=== PATIENT | male | born 1950 | race Caucasian/White ===

== ENCOUNTER 2017-09-24 20:07 | Inpatient (IN) | payer MEDICARE ==
[2017-09-24] MEDS ORDERED: PIPERACILLIN-TAZOBACTAM 3.375 GM in DEXTROSE/WATER 1 50ML.BAG IVPB STA (20:41)
--- NOTE | 2017-09-24 20:54 | ED ---
Extremity Problem HPI - General Chief complaint: Extremity Problem,Nontraumatic Stated complaint: Dog bite Time Seen by Provider: 09/24/17 20:24 Source: patient Mode of arrival: ambulatory Limitations: no limitations - History of Present Illness Initial comments: Patient is a 67-year-old male who presents with a chief complaint of left hand pain and swelling after accidental dog bite 2 days ago. The patient states that he was bit by his dog. Over the last 2 days, the patient has been having increased pain and swelling. He was seen at [facility] today who sent him to the emergency department for further evaluation. Patient states that he does not note any draining however it is swollen and painful to touch. Patient is unable to make a fist currently secondary to pain. Patient has not taken any medications for pain yet. - Related Data Home Medications Medication Instructions Recorded Confirmed Sertraline [Zoloft] 100 tab PO DAILY 11/21/13 09/24/17 Zolpidem [Ambien] 10 mg PO HS PRN 11/21/13 09/24/17 Ranitidine HCl [Zantac] 150 mg PO BID 07/06/16 09/24/17 risperiDONE [RisperDAL] 0.5 mg PO HS 09/24/17 09/24/17 Allergies Allergy/AdvReac Type Severity Reaction Status Date / Time No Known Allergies Allergy Verified 09/24/17 21:00 Review of Systems ROS Statement: Those systems with pertinent positive or pertinent negative responses have been documented in the HPI. ROS Other: All systems not noted in ROS Statement are negative. Past Medical History Past Medical History: GERD/Reflux, Osteoarthritis (OA) Additional Past Medical History / Comment(s): hernia not repaired History of Any Multi-Drug Resistant Organisms: None Reported Past Surgical History: Cholecystectomy, Joint Replacement Additional Past Surgical History / Comment(s): RT KNEE REPLACEMENT, NECK SURG X 2. COLONOSCOPY Past Anesthesia/Blood Transfusion Reactions: No Reported Reaction Past Psychological History: Depression Smoking Status: Former smoker Past Alcohol Use History: None Reported Past Drug Use History: None Reported - Past Family History Sister(s) Family Medical History: Cancer Additional Family Medical History / Comment(s): 2 SISTERS HAD CANCER General Exam Limitations: no limitations General appearance: alert, in no apparent distress Head exam: Present: atraumatic, normocephalic Respiratory exam: Present: normal lung sounds bilaterally. Absent: respiratory distress, wheezes Cardiovascular Exam: Present: regular rate, normal rhythm GI/Abdominal exam: Present: soft. Absent: distended, tenderness Rectal exam: Present: deferred Extremities exam: Present: tenderness, joint swelling, other (Patient has a linear superficial laceration between his thumb and index finger from the dog bite. There is surrounding warmth, swelling, and erythema. There is no streaking or pain in the flexors or extensor tendon sheaths. Patient does have moderate to severe swelling over the volar aspect of the second MCP joint. The area is fluctuant) Back exam: Present: normal inspection Neurological exam: Present: alert, oriented X3 Psychiatric exam: Present: normal affect, normal mood Skin exam: Present: warm, dry, intact Course Vital Signs 09/24/17 20:17 Temperature 98.9 F Pulse Rate 98 Respiratory 18 Rate Blood Pressure 143/71 Medical Decision Making - Medical Decision Making Patient presents with a chief complaint of hand pain secondary to a dog bite. On initial evaluation, vital signs are stable, patient is no acute distress. Examination of the hand is concerning for soft tissue infection. Basic blood work was sent along with an ESR, CRP, and x-ray of the hand. This case was discussed with Dr. Lynch who is requesting an MRI of the patient's hand with consult to Dr. Moise from infectious disease. Patient was started on Zosyn. I discussed the care plan with the patient, he is agreeable currently. Plan 20 1 PM Lab evaluation of this patient shows a leukocytosis and elevated C-reactive protein. Lungs are otherwise unremarkable thus far. This time, patient is stable for transfer to the floor. - Lab Data Result diagrams: 09/24/17 20:47 09/24/17 20:47 Lab Results 09/24/17 09/24/17 Range/Units 20:47 20:47 WBC 13.4 H (3.8-10.6) k/uL RBC 5.08 (4.30-5.90) m/uL Hgb 15.5 (13.0-17.5) gm/dL Hct 43.8 (39.0-53.0) % MCV 86.3 (80.0-100.0) fL MCH 30.6 (25.0-35.0) pg MCHC 35.4 (31.0-37.0) g/dL RDW 12.9 (11.5-15.5) % Plt Count 207 (150-450) k/uL Neutrophils % 82 % Lymphocytes % 12 % Monocytes % 4 % Eosinophils % 1 % Basophils % 0 % Neutrophils # 11.0 H (1.3-7.7) k/uL Lymphocytes # 1.7 (1.0-4.8) k/uL Monocytes # 0.5 (0-1.0) k/uL Eosinophils # 0.2 (0-0.7) k/uL Basophils # 0.1 (0-0.2) k/uL Sodium 139 (137-145) mmol/L Potassium 4.1 (3.5-5.1) mmol/L Chloride 102 (98-107) mmol/L Carbon Dioxide 22 (22-30) mmol/L Anion Gap 15 mmol/L BUN 16 (9-20) mg/dL Creatinine 0.90 (0.66-1.25) mg/dL Est GFR (CKD-EPI)AfAm >90 (>60 ml/min/1.73 sqM) Est GFR (CKD-EPI)NonAf 87 (>60 ml/min/1.73 sqM) Glucose 269 H (74-99) mg/dL Calcium 10.1 (8.4-10.2) mg/dL C-Reactive Protein 26.4 H (<10.0) mg/L Disposition Clinical Impression: Cellulitis of left hand, Dog bite Disposition: ADMITTED IP TO THIS HOSP Condition: Good Decision to Admit Reason: Admit from EC - Out of Hospital Transfer - Req. Specs Out of Hospital Transfer - Requested Specifics: Other Non-Acute
[2017-09-24] MEDS ORDERED: ACETAMINOPHEN TAB 325 MG TAB PO PRN (20:55)
[2017-09-24] MEDS ORDERED: oxyCODONE-APAP 5-325MG 1 EACH TAB PO PRN (20:55)
[2017-09-24] MEDS ORDERED: NALOXONE 0.4 MG/ML 1 ML VIAL IV PRN (20:55)
[2017-09-24] MEDS ORDERED: IBUPROFEN 400 MG TAB PO PRN (20:55)
[2017-09-24 21:07] LABS: Basophils # (A) 0.1 k/uL (0-0.2); Basophils % (A) 0 %; Eosinophils # (A) 0.2 k/uL (0-0.7); Eosinophils % (A) 1 %; HCT 43.8 % (39.0-53.0); HGB 15.5 gm/dL (13.0-17.5); Lymphocytes # (A) 1.7 k/uL (1.0-4.8); Lymphocytes % (A) 12 %; MCH 30.6 pg (25.0-35.0); MCHC 35.4 g/dL (31.0-37.0); MCV 86.3 fL (80.0-100.0); Mean Platelet Volume 7.8; Monocytes # (A) 0.5 k/uL (0-1.0); Monocytes % (A) 4 %; Neutrophils % (A) 82 %; Platelet Count 207 k/uL (150-450); RBC 5.08 m/uL (4.30-5.90); RDW 12.9 % (11.5-15.5); WBC 13.4 k/uL (3.8-10.6)
--- NOTE | 2017-09-24 21:07 | XR ---
EXAMINATION TYPE: XR hand complete LT DATE OF EXAM: 09/24/2017 COMPARISON: NONE HISTORY: Dog bite. Pain. TECHNIQUE: 3 views FINDINGS: There is amputation deformity of the tuft of the distal phalanx of the thumb. This appears old. There is mild spurring at the DIP joints. I see no fracture nor dislocation. 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 No fracture seen.
[2017-09-24 21:16] LABS: Anion Gap 15 mmol/L; Blood Urea Nitrogen 16 mg/dL (9-20); C Reactive Protein 26.4 mg/L (<10.0); Calcium 10.1 mg/dL (8.4-10.2); Carbon Dioxide 22 mmol/L (22-30); Chloride 102 mmol/L (98-107); Glucose 269 mg/dL (74-99); Potassium 4.1 mmol/L (3.5-5.1); Sodium 139 mmol/L (137-145)
[2017-09-24 21:49] LABS: Erythrocyte Sedimentation Rate 7 mm/hr (0-15)
[2017-09-24] MEDS: ZOLPIDEM 10 MG TAB PO SCH (23:16)
[2017-09-25 07:18] LABS: Glucose,Whole Blood 191 mg/dL (75-99)
[2017-09-25] MEDS: INSULIN ASPART 100 UNIT/ML 1 ML 10 ML VIAL SQ SCH ×4 (07:29→22:57)
[2017-09-25] MEDS: SERTRALINE 100 MG TAB PO SCH (07:29)
[2017-09-25] MEDS ORDERED: ZOLPIDEM 10 MG TAB PO PRN (11:07)
[2017-09-25] MEDS: PIPERACILLIN-TAZOBACTAM 3.375 GM in DEXTROSE/WATER 1 50ML.BAG IVPB SCH ×2 (11:34→22:57)
[2017-09-25] MEDS ORDERED: PIPERACILLIN-TAZOBACTAM 3.375 GM in DEXTROSE/WATER 1 50ML.BAG IVPB SCH (12:00)
[2017-09-25 12:33] LABS: Glucose,Whole Blood 190 mg/dL (75-99)
[2017-09-25 17:43] LABS: Glucose,Whole Blood 202 mg/dL (75-99)
[2017-09-25 18:55] LABS: Hemoglobin A1C 7.9 % (4.0-6.0)
[2017-09-25] MEDS ORDERED: ZOLPIDEM 10 MG TAB PO SCH (21:00)
[2017-09-25] MEDS: ZOLPIDEM 10 MG TAB PO SCH (21:16)
[2017-09-25] MEDS: risperiDONE 0.5 MG TAB PO SCH (21:16)
[2017-09-25] MEDS: FAMOTIDINE 20 MG TAB PO SCH (21:16)
[2017-09-25] MEDS: metFORMIN 500 MG TAB PO SCH (21:16)
[2017-09-25 21:32] LABS: Glucose,Whole Blood 181 mg/dL (75-99)
--- NOTE | 2017-09-25 21:43 | P.HPIM ---
History of Present Illness H&P Date: 09/25/17 Chief Complaint: Dog bite with right hand swelling and redness and pain This is a pleasant 67-year-old gentleman patient of Dr. Lawler. He has underlying history of posterior arthritis diabetes mellitus and posttraumatic stress disorder obstructive sleep apnea admitted emergency room 2 days after his been bitten by a dog. They have a domesticated 13 yo [employer], when the patient was bitten after he tried handling the dog to feed him, patient has between him and the left hand involving the metacarpal joint, this was 2 days prior to admission. Patient thereafter dress this one, and woke up this morning with significant redness and swelling and induration. He was subsequently admitted in the emergency room with leukocytosis, and swelling of the hand both dorsum and plantar aspect, patient was started on Zosyn with consultations to Dr. Moise and an MRI of the head imaging was requested. Tetanus vaccination also was requested to be completed in the emergency room. Barton of swelling and redness pain difficulty in using the hand mainly at the metacarpal joint level, wrists are spared distal digit tips are spared Review of Systems Constitutional: Reports as per HPI, Denies anorexia, Denies chills, Denies chronic headaches, Denies chronic pain, Denies daytime sleepiness, Denies fatigue, Denies fever, Denies lethargy, Denies malaise, Denies night sweats, Denies poor appetite, Denies sweats, Denies weakness, Denies weight gain, Denies weight loss Ears, nose, mouth and throat: Reports as per HPI, Denies ant. neck pain, Denies bleeding gums, Denies dental pain, Denies dysphagia, Denies epistaxis, Denies headache, Denies hoarseness, Denies mouth pain, Denies nasal congestion, Denies nasal discharge, Denies neck fullness/pressure, Denies neck lump, Denies nose pain, Denies odynophagia, Denies post-nasal drip, Denies sinus pain, Denies sinus pressure, Denies swelling in mouth, Denies swelling in throat, Denies sore throat, Denies vertigo, Denies voice changes Cardiovascular: Reports as per HPI, Denies chest pain, Denies claudication, Denies decreased exercise tolerance, Denies dyspnea on exertion, Denies edema, Denies high blood pressure, Denies irregular heart beat, Denies leg edema, Denies lightheadedness, Denies orthopnea, Denies palpitations, Denies paroxysmal nocturnal dyspnea, Denies phlebitis, Denies rapid heart beat, Denies shortness of breath, Denies syncope Respiratory: Reports as per HPI, Denies congestion, Denies cough, Denies cough with sputum, Denies dyspnea, Denies excessive sputum, Denies hemoptysis, Denies home oxygen, Denies pain, Denies pain on inspiration, Denies pleurisy, Denies respiratory infections, Denies sleep apnea, Denies snoring, Denies wheezing Gastrointestinal: Reports as per HPI Genitourinary: Reports as per HPI, Denies decreased libido, Denies difficulties fathering child, Denies discharge, Denies dysuria, Denies erectile dysfunction, Denies flank pain, Denies genital pain, Denies genital sores, Denies hematuria, Denies impotence, Denies incontinence, Denies kidney stones, Denies nocturia, Denies polyuria, Denies testicular lump, Denies testicular pain, Denies urinary frequency, Denies urinary hesitancy, Denies urinary retention Musculoskeletal: Reports as per HPI, Denies arm numbness/tingling, Denies atrophy, Denies fractures, Denies frequent falls, Denies gait dysfunction, Denies hot joints, Denies leg numbness/tingling, Denies limitation of motion, Denies loss of height, Denies low back pain, Denies morning stiffness, Denies muscle cramps, Denies muscle weakness, Denies myalgias, Denies neck pain, Denies neck stiffness, Denies prior amputations, Denies redness of joints, Denies shooting arm pain, Denies shooting leg pain Integumentary: Reports as per HPI, Reports color changes, Reports wounds ( LEREFT RED AND SWELLON BET MCP JOINT) Neurological: Reports as per HPI, Denies aphasia, Denies ataxia, Denies balance difficulties, Denies burning pain, Denies change in mentation, Denies change in smell/taste, Denies change in speech, Denies confusion, Denies convulsions, Denies double vision, Denies gait dysfunction, Denies head injury, Denies headaches, Denies hearing difficulties, Denies lack of coordination, Denies loss of vision, Denies memory loss, Denies migraines, Denies motor disturbance, Denies numbness, Denies paralysis, Denies paresthesias, Denies seizures, Denies sensory deficit, Denies spasticity, Denies syncope, Denies tic, Denies tingling , Denies transient paralysis, Denies tremors, Denies vertigo, Denies weakness, Denies visual changes Past Medical History Past Medical History: Diabetes Mellitus, GERD/Reflux, Osteoarthritis (OA) Additional Past Medical History / Comment(s): hernia not repaired History of Any Multi-Drug Resistant Organisms: None Reported Past Surgical History: Cholecystectomy, Joint Replacement Additional Past Surgical History / Comment(s): RT KNEE REPLACEMENT, NECK SURG X 2. COLONOSCOPY UVULOPLASTY FOR OSAS Past Anesthesia/Blood Transfusion Reactions: No Reported Reaction Past Psychological History: Depression Smoking Status: Former smoker Past Alcohol Use History: None Reported Additional Past Alcohol Use History / Comment(s): QUIT SMOKING 25-30 YRS AGO Past Drug Use History: None Reported - Past Family History Sister(s) History Unknown: Yes Family Medical History: Cancer Additional Family Medical History / Comment(s): 2 SISTERS HAD CANCER breast and colon ca, other esopahgeal ca Brother(s) History Unknown: Yes (5 brothers,) Family Medical History: Coronary Artery Disease (CAD) Mother History Unknown: Yes ( from tb) Father History Unknown: Yes ( at age 80) Family Medical History: Coronary Artery Disease (CAD), CVA/TIA Medications and Allergies Home Medications Medication Instructions Recorded Confirmed Type Sertraline [Zoloft] 100 tab PO DAILY 11/21/13 09/24/17 History Zolpidem [Ambien] 10 mg PO HS PRN 11/21/13 09/24/17 History Ranitidine HCl [Zantac] 150 mg PO BID 07/06/16 09/24/17 History risperiDONE [RisperDAL] 0.5 mg PO HS 09/24/17 09/24/17 History Allergies Allergy/AdvReac Type Severity Reaction Status Date / Time No Known Allergies Allergy Verified 09/24/17 21:00 Physical Exam Vitals: Vital Signs Temp Pulse Pulse Resp BP BP Pulse Ox 09/25/17 07:00 97.5 F L 60 20 113/81 94 L 09/24/17 22:00 98.4 F 86 18 128/82 92 L 09/24/17 21:23 94 18 141/79 96 09/24/17 20:17 98.9 F 98 18 143/71 Intake and Output 09/24/17 09/25/17 09/25/17 22:59 06:59 14:59 Intake Total 0 400 Balance 0 400 Intake: Oral 0 400 Other: # Voids 1 1 Weight 89.811 kg - Constitutional General appearance: cooperative, no acute distress, obese - EENT Eyes: anicteric sclerae, EOMI, PERRLA, dentition normal, normal appearance ENT: hearing grossly normal, NA/AT, normal oropharynx - Neck Neck: no lymphadenopathy, normal ROM, no other, no rigidity, no stridor, no thyromegaly - Respiratory Respiratory: bilateral: CTA, negative: diminished, dullness, rhonchi, wheezing, prolonged expiration, prolonged inspiration - Cardiovascular Rhythm: regular Heart sounds: normal: S1, S2 Abnormal Heart Sounds: no systolic murmur, no diastolic murmur, no rub, no S3 Gallop, no S4 Gallop, no click, no other - Gastrointestinal General gastrointestinal: normal bowel sounds, soft - Integumentary Integumentary: cellulitis (Left hand both dorsal and palmar aspect of the metacarpophalangeal joint with a linear injury without any drainage on the medial aspect of the metacarpal phalangeal joint left second digit, circumferential redness involving the second third and fourth metacarpal joint, swollen second metacarpal joint. This I demarcated for further monitoring), normal, normal turgor - Neurologic Neurologic: CNII-XII intact - Musculoskeletal Musculoskeletal: gait normal, strength equal bilaterally - Psychiatric Psychiatric: A&O x's 3, appropriate affect Results CBC & Chem 7: 09/24/17 20:47 09/24/17 20:47 Labs: Abnormal Lab Results - Last 24 Hours (Table) 09/24/17 09/24/17 09/25/17 Range/Units 20:47 20:47 07:15 WBC 13.4 H (3.8-10.6) k/uL Neutrophils # 11.0 H (1.3-7.7) k/uL Glucose 269 H (74-99) mg/dL POC Glucose (mg/dL) 191 H (75-99) mg/dL C-Reactive Protein 26.4 H (<10.0) mg/L Laboratory Results WBC 13.4 k/uL (3.8-10.6) H 09/24/17 20:47 RBC 5.08 m/uL (4.30-5.90) 09/24/17 20:47 Hgb 15.5 gm/dL (13.0-17.5) 09/24/17 20:47 Hct 43.8 % (39.0-53.0) 09/24/17 20:47 MCV 86.3 fL (80.0-100.0) 09/24/17 20:47 MCH 30.6 pg (25.0-35.0) 09/24/17 20:47 MCHC 35.4 g/dL (31.0-37.0) 09/24/17 20:47 RDW 12.9 % (11.5-15.5) 09/24/17 20:47 Plt Count 207 k/uL (150-450) 09/24/17 20:47 Neutrophils % 82 % 09/24/17 20:47 Lymphocytes % 12 % 09/24/17 20:47 Monocytes % 4 % 09/24/17 20:47 Eosinophils % 1 % 09/24/17 20:47 Basophils % 0 % 09/24/17 20:47 Neutrophils # 11.0 k/uL (1.3-7.7) H 09/24/17 20:47 Lymphocytes # 1.7 k/uL (1.0-4.8) 09/24/17 20:47 Monocytes # 0.5 k/uL (0-1.0) 09/24/17 20:47 Eosinophils # 0.2 k/uL (0-0.7) 09/24/17 20:47 Basophils # 0.1 k/uL (0-0.2) 09/24/17 20:47 ESR 7 mm/hr (0-15) 09/24/17 20:47 Sodium 139 mmol/L (137-145) 09/24/17 20:47 Potassium 4.1 mmol/L (3.5-5.1) 09/24/17 20:47 Chloride 102 mmol/L (98-107) 09/24/17 20:47 Carbon Dioxide 22 mmol/L (22-30) 09/24/17 20:47 Anion Gap 15 mmol/L 09/24/17 20:47 BUN 16 mg/dL (9-20) 09/24/17 20:47 Creatinine 0.90 mg/dL (0.66-1.25) 09/24/17 20:47 Est GFR (CKD-EPI)AfAm >90 (>60 ml/min/1.73 sqM) 09/24/17 20:47 Est GFR (CKD-EPI)NonAf 87 (>60 ml/min/1.73 sqM) 09/24/17 20:47 Glucose 269 mg/dL (74-99) H 09/24/17 20:47 POC Glucose (mg/dL) 181 mg/dL (75-99) H 09/25/17 21:30 POC Glu [employer] Charito Ricardo 09/25/17 21:30 Calcium 10.1 mg/dL (8.4-10.2) 09/24/17 20:47 C-Reactive Protein 26.4 mg/L (<10.0) H 09/24/17 20:47 Thrombosis Risk Factor Assmnt - DVT/VTE Prophylaxis DVT/VTE Prophylaxis: Low risk, early ambulation encouraged - Choose All That Apply Any of the Below Risk Factors Present?: Yes Each Factor Represents 1 point: Obesity (BMI >25) Other Risk Factors: Yes Each Risk Factor Represents 2 Points: Age 61-74 years Other congenital or acquired thrombophilia - If yes, enter type in comment: No Thrombosis Risk Factor Assessment Total Risk Factor Score: 3 Thrombosis Risk Factor Assessment Level: Moderate Risk Assessment and Plan Plan: 1. Cellulitis of the left hand, involving the second metacarpophalangeal joint injury, linear laceration not requiring any strictures noted on the medial aspect of the second MCP joint, after a dog bite domesticated provoked. Dr. Moise on consult, MRI of the left hand requested to evaluate for abscess as well as musculoskeletal injuries 2 SIRS, with leukocytosis, secondary to cellulitis, left hand, joint , dog bite patient is on Rocephin, blood cultures no 12 cultures have been obtained patient is on Zosyn initiated from the emergency room Dr. Moise on consult 3. Diabetes mellitus type 2, on metformin 500 mg at bedtime, A1c ordered 4. Mood disorder with PTSD on maintenance Risperdal and Zoloft no changes made 5. Insomnia chronic, on maintenance 10 mg Ambien 6. Obstructive sleep apnea 7. GI prophylaxis and DVT prophylaxis Estimated length of stay for inpatient stay with IV antibiotics, 2 nights minimum
--- NOTE | 2017-09-25 23:01 | P.CONS ---
History of Present Illness - Reason for Consult Consult date: 09/25/17 - Chief Complaint Dog bite left hand - History of Present Illness Very pleasant 67-year-old male who relates that he was in his home setting and was trying to assist his small pet dog onto the sofa. It reacted by turning around and biting him onto his left hand. The animal had a tight clinical transformation specialist and did not immediately go when he attempted to pull his hand away. With some gentle coaxing the dog finally released and he had a severe injury to the hand. He quit with soap and water over the next 24 hours seemed to be doing relatively well. However by the next day and had significant amounts of swelling and pain. He presented to the local walk-in clinic and was directed to the emergency center because of the extent of the swelling and infection that was present. He was provided update to his tetanus vaccine at the walk-in clinic and referred to the emergency center. With evidence of the animal bite in the extensive cellulitis the patient was admitted and started on intravenous antibiotic therapy. The patient believes he showing some improvement. He is denying high-grade fevers chills or rigors or sweats. The hand is still somewhat painful. He still has swelling and erythema. There is no significant purulence at the injury sites. He did have significant swelling to his hand where it was very difficult to try to make a fist. Is having improving hand function today. Review of Systems 67-year-old gentleman who denies other acute difficulties HEENT:Denies headache or acute visual change. Denies sinus or mouth discomforts. Denies neck stiffness or pain. Denies significant oral cavity pain. Denies difficulty on swallowing. Lungs: Denies significant shortness of breath, cough, sputum production, or hemoptysis. Cardiovascular: Denies significant shortness of breath, chest pain, chest wall pain, orthopnea, dyspnea on exertion, syncope Gastrointestinal:Denies nausea, vomiting, diarrhea, constipation, hematemesis, melena, hematochezia. No no significant change of bowel habit noticed. Musculoskeletal: denies significant myalgias or arthralgias. No new joint swelling. Denies new back pain. Skin: As per the HPI Neuro: Denies headache or visual change. Denies any new onset weakness or difficulty with ambulation. Denies falls or seizures. Psychiatric:Denies anxiety or depression. Endocrine: Denies significant fatigue, denies significant weight loss or weight gain. Past Medical History Past Medical History: Diabetes Mellitus, GERD/Reflux, Osteoarthritis (OA) Additional Past Medical History / Comment(s): hernia not repaired History of Any Multi-Drug Resistant Organisms: None Reported Past Surgical History: Cholecystectomy, Joint Replacement Additional Past Surgical History / Comment(s): RT KNEE REPLACEMENT, NECK SURG X 2. COLONOSCOPY UVULOPLASTY FOR OSAS Past Anesthesia/Blood Transfusion Reactions: No Reported Reaction Past Psychological History: Depression Additional Psychological History / Comment(s): and lives with family home with the . 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 No international travel since. Has a pet dog in the home up-to-date in its vaccines no prior history of any bites. No other animals. Tobacco smoker stopping 25 years ago. No recreational drug use Smoking Status: Former smoker Past Alcohol Use History: None Reported Additional Past Alcohol Use History / Comment(s): QUIT SMOKING 25-30 YRS AGO Past Drug Use History: None Reported - Past Family History Sister(s) History Unknown: Yes Family Medical History: Cancer Additional Family Medical History / Comment(s): 2 SISTERS HAD CANCER breast and colon ca, other esopahgeal ca Brother(s) History Unknown: Yes (5 brothers,) Family Medical History: Coronary Artery Disease (CAD) Mother History Unknown: Yes ( from tb) Father History Unknown: Yes ( at age 80) Family Medical History: Coronary Artery Disease (CAD), CVA/TIA Medications and Allergies Home Medications and Allergies Comment(s): Current Medications Acetaminophen (Tylenol Tab) 650 mg PO Q6HR PRN PRN Reason: Mild Pain or Fever > 100.5 Last Admin: 09/24/17 21:20 Dose: 650 mg Famotidine (Pepcid) 20 mg PO BID [facility] Last Admin: 09/25/17 21:16 Dose: 20 mg Piperacillin/Tazobactam/ (Dextrose 3.375 gm/ IV Solution) 50 mls @ 12.5 mls/hr IVPB Q8H [facility] Last Admin: 09/25/17 11:34 Dose: 12.5 mls/hr Ibuprofen (Motrin) 400 mg PO Q6HR PRN PRN Reason: Mild Pain or Fever > 100.5 Last Admin: 09/24/17 21:20 Dose: 400 mg Insulin Aspart (Novolog) 0 unit SQ ACHS [facility] PRN Reason: Protocol Last Admin: 09/25/17 17:47 Dose: 4 unit Metformin HCl (Glucophage) 500 mg PO [facility] Last Admin: 09/25/17 21:16 Dose: 500 mg Naloxone HCl (Narcan) 0.2 mg IV Q2M PRN PRN Reason: Opioid Reversal Oxycodone/Acetaminophen (Percocet 5-325) 1 each PO Q4HR PRN PRN Reason: Severe Pain Risperidone (Risperdal) 0.5 mg PO [facility] Last Admin: 09/25/17 21:16 Dose: 0.5 mg Sertraline HCl (Zoloft) 100 mg PO DAILY [facility] Last Admin: 09/25/17 07:29 Dose: 100 mg Zolpidem Tartrate (Ambien) 10 mg PO [facility] Last Admin: 09/25/17 21:16 Dose: 10 mg Home Medications Medication Instructions Recorded Confirmed Type Sertraline [Zoloft] 100 tab PO DAILY 11/21/13 09/24/17 History Zolpidem [Ambien] 10 mg PO HS PRN 11/21/13 09/24/17 History Ranitidine HCl [Zantac] 150 mg PO BID 07/06/16 09/24/17 History risperiDONE [RisperDAL] 0.5 mg PO HS 09/24/17 09/24/17 History Allergies Allergy/AdvReac Type Severity Reaction Status Date / Time No Known Allergies Allergy Verified 09/24/17 21:00 Physical Exam Vitals: Vital Signs Temp Pulse Resp BP Pulse Ox 09/25/17 15:00 97.2 F L 72 20 133/77 95 09/25/17 07:00 97.5 F L 60 20 113/81 94 L Intake and Output 09/25/17 09/25/17 09/25/17 06:59 14:59 22:59 Intake Total 400 240 Balance 400 240 Intake: Oral 400 240 Other: Voiding Method Toilet Toilet # Voids 1 1 67 year old male not in distress HEENT: Anicteric conjunctiva are pink and moist nasal mucosa grossly intact without significant lesions, there is no thrush. Neck: The neck is supple without significant lymphadenopathy or thyromegaly. Lungs: Good bilateral air entry without significant crackles or wheezing. There is no significant bronchial sounds. There is no egophony or dullness. Heart: Regular rate and rhythm with an audible S1-S2, no S3 no S4. There is no significant murmur click or rub, PMI was nondisplaced. Abdomen: Positive bowel sounds soft and nontender without palpable masses or organomegaly. There was no guarding or rebound. Extremities: The right upper extremity is intact. Left upper extremity shows evidence of the animal bite on the interspace between the thumb and index finger and one small injury at the base of the third proximal phalanx medial side neither area with expressible purulence but there is tenderness and erythema the ascending erythema to the hand appears to be improving in the last days time. There are still some swelling to the hand. He does have the ability to make a partial cyst. 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 The lower extremities have no lesions. There is no significant lower extremity edema. Neuro: Awake alert oriented to person place and time. There are no acute new gross focal sensory motor deficits. Results CBC & Chem 7: 09/24/17 20:47 09/24/17 20:47 Labs: Abnormal Lab Results - Last 24 Hours (Table) 09/25/17 09/25/17 09/25/17 Range/Units 07:15 08:25 12:30 POC Glucose (mg/dL) 191 H 190 H (75-99) mg/dL Hemoglobin A1c 7.9 H (4.0-6.0) % 09/25/17 09/25/17 Range/Units 17:38 21:30 POC Glucose (mg/dL) 202 H 181 H (75-99) mg/dL Hemoglobin A1c (4.0-6.0) % Laboratory Results WBC 13.4 k/uL (3.8-10.6) H 09/24/17 20:47 RBC 5.08 m/uL (4.30-5.90) 09/24/17 20:47 Hgb 15.5 gm/dL (13.0-17.5) 09/24/17 20:47 Hct 43.8 % (39.0-53.0) 09/24/17 20:47 MCV 86.3 fL (80.0-100.0) 09/24/17 20:47 MCH 30.6 pg (25.0-35.0) 09/24/17 20:47 MCHC 35.4 g/dL (31.0-37.0) 09/24/17 20:47 RDW 12.9 % (11.5-15.5) 09/24/17 20:47 Plt Count 207 k/uL (150-450) 09/24/17 20:47 Neutrophils % 82 % 09/24/17 20:47 Lymphocytes % 12 % 09/24/17 20:47 Monocytes % 4 % 09/24/17 20:47 Eosinophils % 1 % 09/24/17 20:47 Basophils % 0 % 09/24/17 20:47 Neutrophils # 11.0 k/uL (1.3-7.7) H 09/24/17 20:47 Lymphocytes # 1.7 k/uL (1.0-4.8) 09/24/17 20:47 Monocytes # 0.5 k/uL (0-1.0) 09/24/17 20:47 Eosinophils # 0.2 k/uL (0-0.7) 09/24/17 20:47 Basophils # 0.1 k/uL (0-0.2) 09/24/17 20:47 ESR 7 mm/hr (0-15) 09/24/17 20:47 Sodium 139 mmol/L (137-145) 09/24/17 20:47 Potassium 4.1 mmol/L (3.5-5.1) 09/24/17 20:47 Chloride 102 mmol/L (98-107) 09/24/17 20:47 Carbon Dioxide 22 mmol/L (22-30) 09/24/17 20:47 Anion Gap 15 mmol/L 09/24/17 20:47 BUN 16 mg/dL (9-20) 09/24/17 20:47 Creatinine 0.90 mg/dL (0.66-1.25) 09/24/17 20:47 Est GFR (CKD-EPI)AfAm >90 (>60 ml/min/1.73 sqM) 09/24/17 20:47 Est GFR (CKD-EPI)NonAf 87 (>60 ml/min/1.73 sqM) 09/24/17 20:47 Glucose 269 mg/dL (74-99) H 09/24/17 20:47 POC Glucose (mg/dL) 181 mg/dL (75-99) H 09/25/17 21:30 POC Glu [employer] ID Charito Flores 09/25/17 21:[address] Glu mg/dL 180 09/25/17 08:25 Hemoglobin A1c 7.9 % (4.0-6.0) H 09/25/17 08:25 Calcium 10.1 mg/dL (8.4-10.2) 09/24/17 20:47 C-Reactive Protein 26.4 mg/L (<10.0) H 09/24/17 20:47 Microbiology 09/24/17 20:47 Blood Blood Culture - Preliminary No Growth after 24 hours Comments: X-ray hand without fracture imaging studies otherwise pending Assessment and Plan (1) Dog bite Narrative/Plan: 67-year-old male relates that he suffered a dog bite to his left hand from his family. The animal has all of its vaccines. This is the first time event like this is occurred. However was provoked. Overall the patient is having some improvement. He is having some improvement to the range of motion and decreased erythema and tenderness and swelling. The patient is showing a good response to current antibiotic therapy. Further imaging studies are in process. However given his significant improvement seems to be less likely to have deep infection clinically does not seem to have tenosynovitis, x-ray did not reveal evidence of fracture or foreign body effect. The patient had his tetanus vaccine updated and is feeling somewhat well this point in time. Will offer some consistent anti-inflammatory to reduce the swelling and help with pain and hopefully will be able to have a rapid improvement and then transition to oral antibiotic therapy in the near future. Current Visit: Yes Status: Acute Code(s): W54.0XXA - BITTEN BY DOG, INITIAL ENCOUNTER SNOMED Code(s): 228373964 (2) Cellulitis of left hand Current Visit: Yes Status: Acute Code(s): L03.114 - CELLULITIS OF LEFT UPPER LIMB SNOMED Code(s): 46716821
[2017-09-25] MEDS: KETOROLAC 30 MG/ML 1 ML VIAL IVP SCH (23:23)
[2017-09-26] MEDS: KETOROLAC 30 MG/ML 1 ML VIAL IVP SCH ×3 (06:21→17:07)
[2017-09-26] MEDS: PIPERACILLIN-TAZOBACTAM 3.375 GM in DEXTROSE/WATER 1 50ML.BAG IVPB SCH ×3 (06:21→21:25)
[2017-09-26] MEDS: SERTRALINE 100 MG TAB PO SCH (07:16)
[2017-09-26] MEDS: FAMOTIDINE 20 MG TAB PO SCH ×2 (07:16→21:25)
[2017-09-26] MEDS: INSULIN ASPART 100 UNIT/ML 1 ML 10 ML VIAL SQ SCH ×4 (07:16→21:25)
[2017-09-26 07:41] LABS: Glucose,Whole Blood 163 mg/dL (75-99)
[2017-09-26 09:29] LABS: Basophils # (A) 0.1 k/uL (0-0.2); Basophils % (A) 1 %; Eosinophils # (A) 0.3 k/uL (0-0.7); Eosinophils % (A) 4 %; HCT 39.2 % (39.0-53.0); HGB 13.4 gm/dL (13.0-17.5); Lymphocytes # (A) 2.1 k/uL (1.0-4.8); Lymphocytes % (A) 26 %; MCH 29.9 pg (25.0-35.0); MCHC 34.1 g/dL (31.0-37.0); MCV 87.6 fL (80.0-100.0); Mean Platelet Volume 9.2; Monocytes # (A) 0.5 k/uL (0-1.0); Monocytes % (A) 6 %; Neutrophils # (A) 4.8 k/uL (1.3-7.7); Neutrophils % (A) 61 %; Platelet Count 178 k/uL (150-450); RBC 4.48 m/uL (4.30-5.90); RDW 13.1 % (11.5-15.5); WBC 7.9 k/uL (3.8-10.6)
[2017-09-26 09:59] LABS: ALT 36 U/L (21-72); AST 20 U/L (17-59); Albumin 3.6 g/dL (3.5-5.0); Alkaline Phosphatase 38 U/L (38-126); Anion Gap 13 mmol/L; Blood Urea Nitrogen 18 mg/dL (9-20); C Reactive Protein 61.1 mg/L (<10.0); Calcium 9.6 mg/dL (8.4-10.2); Carbon Dioxide 24 mmol/L (22-30); Chloride 102 mmol/L (98-107); Glucose 249 mg/dL (74-99); Sodium 139 mmol/L (137-145); Total Bilirubin 1.1 mg/dL (0.2-1.3); Total Protein 6.1 g/dL (6.3-8.2)
[2017-09-26 11:06] LABS: Erythrocyte Sedimentation Rate 13 mm/hr (0-15)
[2017-09-26 12:33] LABS: Glucose,Whole Blood 184 mg/dL (75-99)
--- NOTE | 2017-09-26 13:55 | P.PN ---
Subjective Progress Note Date: 09/26/17 Principal diagnosis: Dog bite left hand Very pleasant 67-year-old male who relates that he was in his home setting and was trying to assist his small pet dog onto the sofa. It reacted by turning around and biting him onto his left hand. The animal had a tight competitive intelligence analyst and did not immediately go when he attempted to pull his hand away. With some gentle coaxing the dog finally released and he had a severe injury to the hand. He quit with soap and water over the next 24 hours seemed to be doing relatively well. However by the next day and had significant amounts of swelling and pain. He presented to the local walk-in clinic and was directed to the emergency center because of the extent of the swelling and infection that was present. He was provided update to his tetanus vaccine at the walk-in clinic and referred to the emergency center. With evidence of the animal bite in the extensive cellulitis the patient was admitted and started on intravenous antibiotic therapy. The patient believes he showing some improvement. He is denying high-grade fevers chills or rigors or sweats. The hand is still somewhat painful. He still has swelling and erythema. There is no significant purulence at the injury sites. He did have significant swelling to his hand where it was very difficult to try to make a fist. Is having improving hand function today. 09/26/2017 reveals this very pleasant gentleman to have further improvement over the last day. Swelling is down. Pain is improved. Function is improved. No evidence of any significant ascending infection. [place] feeling somewhat better. Not having significant fever. Objective - Vital Signs Vital signs: Vital Signs Temp 97.0 F L 09/26/17 07:00 Pulse 56 L 09/26/17 07:00 Resp 18 09/26/17 07:00 BP 110/74 09/26/17 07:00 Pulse Ox 93 L 09/26/17 07:00 Intake & Output 09/25/17 09/26/17 09/26/17 17:59 06:59 18:59 Intake Total Balance Intake: Oral Other: Voiding Method Toilet # Voids 2 - Exam 67 year old male not in distress HEENT: Anicteric conjunctiva are pink and moist nasal mucosa grossly intact without significant lesions, there is no thrush. Neck: The neck is supple without significant lymphadenopathy or thyromegaly. Lungs: Good bilateral air entry without significant crackles or wheezing. There is no significant bronchial sounds. There is no egophony or dullness. Heart: Regular rate and rhythm with an audible S1-S2, no S3 no S4. There is no significant murmur click or rub, PMI was nondisplaced. Abdomen: Positive bowel sounds soft and nontender without palpable masses or organomegaly. There was no guarding or rebound. Extremities: The right upper extremity is intact. Left upper extremity shows evidence of the animal bite on the interspace between the thumb and index finger and one small injury at the base of the third proximal phalanx medial side neither area with expressible purulence but there is tenderness and erythema the ascending erythema to the hand appears to be improving in the last days time. There IS still some swelling to the hand. He does have the ability to make almost a complete fist. 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 The lower extremities have no lesions. There is no significant lower extremity edema. Neuro: Awake alert oriented to person place and time. There are no acute new gross focal sensory motor deficits. - Labs CBC & Chem 7: 09/26/17 09:04 09/26/17 09:04 Labs: Abnormal Lab Results - Last 24 Hours (Table) 09/25/17 09/25/17 09/25/17 Range/Units 08:25 17:38 21:30 Glucose (74-99) mg/dL POC Glucose (mg/dL) 202 H 181 H (75-99) mg/dL Hemoglobin A1c 7.9 H (4.0-6.0) % C-Reactive Protein (<10.0) mg/L Total Protein (6.3-8.2) g/dL 09/26/17 09/26/17 09/26/17 Range/Units 07:08 09:04 12:29 Glucose 249 H (74-99) mg/dL POC Glucose (mg/dL) 163 H 184 H (75-99) mg/dL Hemoglobin A1c (4.0-6.0) % C-Reactive Protein 61.1 H (<10.0) mg/L Total Protein 6.1 L (6.3-8.2) g/dL Microbiology - Last 24 Hours (Table) 09/24/17 20:47 Blood Culture - Preliminary Blood No Growth after 24 hours Laboratory Results WBC 7.9 k/uL (3.8-10.6) 09/26/17 09:04 RBC 4.48 m/uL (4.30-5.90) 09/26/17 09:04 Hgb 13.4 gm/dL (13.0-17.5) 09/26/17 09:04 Hct 39.2 % (39.0-53.0) 09/26/17 09:04 MCV 87.6 fL (80.0-100.0) 09/26/17 09:04 MCH 29.9 pg (25.0-35.0) 09/26/17 09:04 MCHC 34.1 g/dL (31.0-37.0) 09/26/17 09:04 RDW 13.1 % (11.5-15.5) 09/26/17 09:04 Plt Count 178 k/uL (150-450) 09/26/17 09:04 Neutrophils % 61 % 09/26/17 09:04 Lymphocytes % 26 % 09/26/17 09:04 Monocytes % 6 % 09/26/17 09:04 Eosinophils % 4 % 09/26/17 09:04 Basophils % 1 % 09/26/17 09:04 Neutrophils # 4.8 k/uL (1.3-7.7) 09/26/17 09:04 Lymphocytes # 2.1 k/uL (1.0-4.8) 09/26/17 09:04 Monocytes # 0.5 k/uL (0-1.0) 09/26/17 09:04 Eosinophils # 0.3 k/uL (0-0.7) 09/26/17 09:04 Basophils # 0.1 k/uL (0-0.2) 09/26/17 09:04 ESR 13 mm/hr (0-15) 09/26/17 09:04 Sodium 139 mmol/L (137-145) 09/26/17 09:04 Potassium 4.0 mmol/L (3.5-5.1) 09/26/17 09:04 Chloride 102 mmol/L (98-107) 09/26/17 09:04 Carbon Dioxide 24 mmol/L (22-30) 09/26/17 09:04 Anion Gap 13 mmol/L 09/26/17 09:04 BUN 18 mg/dL (9-20) 09/26/17 09:04 Creatinine 0.90 mg/dL (0.66-1.25) 09/26/17 09:04 Est GFR (CKD-EPI)AfAm >90 (>60 ml/min/1.73 sqM) 09/26/17 09:04 Est GFR (CKD-EPI)NonAf 87 (>60 ml/min/1.73 sqM) 09/26/17 09:04 Glucose 249 mg/dL (74-99) H 09/26/17 09:04 POC Glucose (mg/dL) 184 mg/dL (75-99) H 09/26/17 12:29 POC Glu Secondary Connector Armature ID Sania Schroeder 09/26/17 12:[address] Glu mg/dL 180 09/25/17 08:25 Hemoglobin A1c 7.9 % (4.0-6.0) H 09/25/17 08:25 Calcium 9.6 mg/dL (8.4-10.2) 09/26/17 09:04 Total Bilirubin 1.1 mg/dL (0.2-1.3) 09/26/17 09:04 AST 20 U/L (17-59) 09/26/17 09:04 ALT 36 U/L (21-72) 09/26/17 09:04 Alkaline Phosphatase 38 U/L (38-126) 09/26/17 09:04 C-Reactive Protein 61.1 mg/L (<10.0) H 09/26/17 09:04 Total Protein 6.1 g/dL (6.3-8.2) L 09/26/17 09:04 Albumin 3.6 g/dL (3.5-5.0) 09/26/17 09:04 Microbiology 09/24/17 20:47 Blood Blood Culture - Preliminary No Growth after 24 hours Assessment and Plan (1) Dog bite Narrative/Plan: 67-year-old male relates that he suffered a dog bite to his left hand from his family. The animal has all of its vaccines. This is the first time event like this is occurred. However was provoked. Overall the patient is having some improvement. He is having some improvement to the range of motion and decreased erythema and tenderness and swelling. The patient is showing a good response to current antibiotic therapy. Further imaging studies are in process. However given his significant improvement seems to be less likely to have deep infection clinically does not seem to have tenosynovitis, x-ray did not reveal evidence of fracture or foreign body effect. The patient had his tetanus vaccine updated and is feeling somewhat well this point in time. Will offer some consistent anti-inflammatory to reduce the swelling and help with pain and hopefully will be able to have a rapid improvement and then transition to oral antibiotic therapy in the near future. 09/26/2017 reveals the patient to be further improved. Pain and swelling of improved. Good response to the Toradol infusion. He is denying any new troubles. He will have his MRI in the morning. If there is no evidence of tenosynovitis he may then be transitioned to oral antibiotic therapy and discharged home. Current Visit: Yes Status: Acute Code(s): W54.0XXA - BITTEN BY DOG, INITIAL ENCOUNTER SNOMED Code(s): 173944694 (2) Cellulitis of left hand Current Visit: Yes Status: Acute Code(s): L03.114 - CELLULITIS OF LEFT UPPER LIMB SNOMED Code(s): 28456236
[2017-09-26 17:54] LABS: Glucose,Whole Blood 150 mg/dL (75-99)
[2017-09-26 20:53] LABS: Glucose,Whole Blood 231 mg/dL (75-99)
[2017-09-26] MEDS: ZOLPIDEM 10 MG TAB PO SCH (21:25)
[2017-09-26] MEDS: risperiDONE 0.5 MG TAB PO SCH (21:25)
[2017-09-26] MEDS: metFORMIN 500 MG TAB PO SCH (21:25)
--- NOTE | 2017-09-26 23:24 | P.PN ---
Subjective Progress Note Date: 09/26/17 Chief Complaint: Dog bite with right hand swelling and redness and pain This is a pleasant 67-year-old gentleman patient of Dr. Lawler. He has underlying history of posterior arthritis diabetes mellitus and posttraumatic stress disorder obstructive sleep apnea admitted emergency room 2 days after his been bitten by a dog. They have a domesticated 13 yo [employer], when the patient was bitten after he tried handling the dog to feed him, patient has between him and the left hand involving the metacarpal joint, this was 2 days prior to admission. Patient thereafter dress this one, and woke up this morning with significant redness and swelling and induration. He was subsequently admitted in the emergency room with leukocytosis, and swelling of the hand both dorsum and plantar aspect, patient was started on Zosyn with consultations to Dr. Moise and an MRI of the head imaging was requested. Tetanus vaccination also was requested to be completed in the emergency room. [place] of swelling and redness pain difficulty in using the hand mainly at the metacarpal joint level, wrists are spared distal digit tips are spared 09/26: Patient's doing better, including flexion and extension of fingers and hands, induration is improved, swelling has improved, MRI was rescheduled for tomorrow morning, IV antibiotics maintain, Dr. Moise following. Patient denies any fever no nausea no diarrhea, blood cultures are currently -48 hours Objective - Vital Signs Vital signs: Vital Signs Temp 97.0 F L 09/26/17 07:00 Pulse 56 L 09/26/17 07:00 Resp 18 09/26/17 07:00 BP 110/74 09/26/17 07:00 Pulse Ox 93 L 09/26/17 07:00 Intake & Output 09/25/17 09/26/17 09/26/17 17:59 06:59 18:59 Intake Total Balance Intake: Oral Other: Voiding Method Toilet # Voids 2 - Constitutional General appearance: Present: cooperative, no acute distress, obese - EENT Eyes: Present: anicteric sclerae, EOMI, PERRLA, normal appearance ENT: Present: hearing grossly normal, normal oropharynx - Neck Neck: Present: normal ROM - Respiratory Respiratory: bilateral: CTA, negative: diminished, dullness, rales, rhonchi, wheezing - Cardiovascular Rhythm: regular Heart sounds: normal: S1, S2 - Gastrointestinal General gastrointestinal: Present: normal bowel sounds, soft - Integumentary Integumentary: Present: cellulitis (Improved redness and swelling on the left hand interdigits metacarpal, second third and fourth finger swelling has resolved receival swelling second MCP joint), normal - Neurologic Neurologic: Present: CNII-XII intact - Musculoskeletal Musculoskeletal: Present: gait normal, strength equal bilaterally - Psychiatric Psychiatric: Present: A&O x's 3, appropriate affect, intact judgment & insight - Labs CBC & Chem 7: 09/26/17 09:04 09/26/17 09:04 Labs: Abnormal Lab Results - Last 24 Hours (Table) 09/25/17 09/25/17 09/25/17 Range/Units 08:25 12:30 17:38 Glucose (74-99) mg/dL POC Glucose (mg/dL) 190 H 202 H (75-99) mg/dL Hemoglobin A1c 7.9 H (4.0-6.0) % C-Reactive Protein (<10.0) mg/L Total Protein (6.3-8.2) g/dL 09/25/17 09/26/17 09/26/17 Range/Units 21:30 07:08 09:04 Glucose 249 H (74-99) mg/dL POC Glucose (mg/dL) 181 H 163 H (75-99) mg/dL Hemoglobin A1c (4.0-6.0) % C-Reactive Protein 61.1 H (<10.0) mg/L Total Protein 6.1 L (6.3-8.2) g/dL Microbiology - Last 24 Hours (Table) 09/24/17 20:47 Blood Culture - Preliminary Blood No Growth after 24 hours Assessment and Plan Plan: 1. Cellulitis of the left hand, involving the second metacarpophalangeal joint injury, linear laceration not requiring any strictures noted on the medial aspect of the second MCP joint, after a dog bite domesticated provoked. Dr. Moise on consult, MRI of the left hand requested to evaluate for abscess as well as musculoskeletal injuries patient continues to improve, anticipate discharge in the next 24 hours should MRI show no tenosynovitis 2 SIRS, with leukocytosis, secondary to cellulitis, left hand, joint improving, dog bite patient is on Rocephin, blood cultures , -48 hours, no wound cultures have been obtained patient is on Zosyn initiated from the emergency room Dr. Moise on consult 3. Diabetes mellitus type 2, on metformin 500 mg at bedtime, A1c ordered 4. Mood disorder with PTSD on maintenance Risperdal and Zoloft no changes made 5. Insomnia chronic, on maintenance 10 mg Ambien 6. Obstructive sleep apnea 7. GI prophylaxis and DVT prophylaxis Estimated length of stay for inpatient stay with IV antibiotics, 2 nights minimum
[2017-09-27 00:03] VITALS: RESP 16
[2017-09-27] MEDS: KETOROLAC 30 MG/ML 1 ML VIAL IVP SCH ×4 (00:05→18:20)
[2017-09-27] MEDS: PIPERACILLIN-TAZOBACTAM 3.375 GM in DEXTROSE/WATER 1 50ML.BAG IVPB SCH ×2 (05:13→11:44)
[2017-09-27 07:32] LABS: Glucose,Whole Blood 162 mg/dL (75-99)
[2017-09-27] MEDS: INSULIN ASPART 100 UNIT/ML 1 ML 10 ML VIAL SQ SCH ×3 (08:24→17:58)
[2017-09-27] MEDS: SERTRALINE 100 MG TAB PO SCH (08:25)
[2017-09-27] MEDS: FAMOTIDINE 20 MG TAB PO SCH (08:25)
[2017-09-27 09:23] LABS: Basophils # (A) 0.1 k/uL (0-0.2); Basophils % (A) 1 %; Eosinophils # (A) 0.3 k/uL (0-0.7); Eosinophils % (A) 4 %; HCT 41.3 % (39.0-53.0); HGB 13.9 gm/dL (13.0-17.5); Lymphocytes # (A) 2.1 k/uL (1.0-4.8); Lymphocytes % (A) 27 %; MCH 29.8 pg (25.0-35.0); MCHC 33.8 g/dL (31.0-37.0); MCV 88.3 fL (80.0-100.0); Mean Platelet Volume 8.4; Monocytes # (A) 0.4 k/uL (0-1.0); Monocytes % (A) 5 %; Neutrophils # (A) 4.7 k/uL (1.3-7.7); Neutrophils % (A) 60 %; Platelet Count 208 k/uL (150-450); RBC 4.68 m/uL (4.30-5.90); WBC 7.8 k/uL (3.8-10.6)
[2017-09-27 10:50] LABS: ALT 40 U/L (21-72); AST 26 U/L (17-59); Albumin 3.7 g/dL (3.5-5.0); Alkaline Phosphatase 41 U/L (38-126); Anion Gap 12 mmol/L; Blood Urea Nitrogen 18 mg/dL (9-20); Calcium 9.5 mg/dL (8.4-10.2); Carbon Dioxide 21 mmol/L (22-30); Chloride 105 mmol/L (98-107); Glucose 247 mg/dL (74-99); Potassium 4.6 mmol/L (3.5-5.1); Sodium 138 mmol/L (137-145); Total Bilirubin 0.9 mg/dL (0.2-1.3); Total Protein 6.2 g/dL (6.3-8.2)
[2017-09-27 11:49] LABS: Glucose,Whole Blood 202 mg/dL (75-99)
--- NOTE | 2017-09-27 15:44 | P.DS ---
Providers Date of admission: 09/24/17 20:55 Expected date of discharge: 09/27/17 Attending physician: Sunita Mendez Consults: 09/24/17 20:55 Consult Physician Stat Consulting Provider: Danilo Moise Reason/Comments: dog bite to hand Do you want consulting provider notified?: Yes Primary care physician: Wilfredo [place] [facility] Course: This is a pleasant 67-year-old gentleman patient of Dr. Lawler. He has underlying history of posterior arthritis diabetes mellitus and posttraumatic stress disorder obstructive sleep apnea admitted emergency room 2 days after his been bitten by a dog. They have a domesticated 13 yo [employer], when the patient was bitten after he tried handling the dog to feed him, patient has between him and the left hand involving the metacarpal joint, this was 2 days prior to admission. Patient thereafter dress this one, and woke up this morning with significant redness and swelling and induration. He was subsequently admitted in the emergency room with leukocytosis, and swelling of the hand both dorsum and plantar aspect, patient was started on Zosyn with consultations to Dr. Moise and an MRI of the head imaging was requested. Tetanus vaccination also was requested to be completed in the emergency room. [place] of swelling and redness pain difficulty in using the hand mainly at the metacarpal joint level, wrists are spared distal digit tips are spared 09/26: Patient's doing better, including flexion and extension of fingers and hands, induration is improved, swelling has improved, MRI was rescheduled for tomorrow morning, IV antibiotics maintain, Dr. Moise following. Patient denies any fever no nausea no diarrhea, blood cultures are currently -48 hours 09/27: Patient was elevated today. Patient doing much better swelling and erythema has improved. He denies any fevers chills. MRI is pending, Dr. Moise on consult. Patient will have MRI and then discharged home with follow- up with PCP and ID. He'll be discharged on Augmentin. Discharge diagnoses 1. Cellulitis of the left hand, involving the second metacarpophalangeal joint injury 2 SIRS, with leukocytosis, secondary to cellulitis 3. Diabetes mellitus type 2 4. Mood disorder with PTSD 5. Insomnia chronic 6. Obstructive sleep apnea The above impression and plan of care have been discussed and directed by signing physician. Yamel Dunham nurse practitioner acting as scribe for signing physician. Patient Condition at Discharge: Good Plan - Discharge Summary Discharge Rx Participant: No New Discharge Prescriptions: New Acetaminophen Tab [Tylenol] 650 mg PO Q6HR PRN tab PRN Reason: Mild Pain Or Fever > 100.5 Amoxicillin/Potassium Clav [Augmentin 875-125 Tablet] 1 tab PO Q12HR #20 tab Ketorolac [Toradol] 10 mg PO Q6HR #24 tab metFORMIN HCL [Glucophage] 500 mg PO HS #60 tab Mupirocin 2% Oint [Bactroban 2% Oint] 1 applic TOPICAL TID #15 gm Continue Zolpidem [Ambien] 10 mg PO HS PRN PRN Reason: SLEEP Sertraline [Zoloft] 100 tab PO DAILY Ranitidine HCl [Zantac] 150 mg PO BID risperiDONE [RisperDAL] 0.5 mg PO HS Discharge Medication List Sertraline [Zoloft] 100 tab PO DAILY 11/21/13 [History] Zolpidem [Ambien] 10 mg PO HS PRN 11/21/13 [History] Ranitidine HCl [Zantac] 150 mg PO BID 07/06/16 [History] risperiDONE [RisperDAL] 0.5 mg PO HS 09/24/17 [History] Acetaminophen Tab [Tylenol] 650 mg PO Q6HR PRN tab 09/27/17 [Rx] Amoxicillin/Potassium Clav [Augmentin 875-125 Tablet] 1 tab PO Q12HR #20 tab 07/05 [Rx] Ketorolac [Toradol] 10 mg PO Q6HR #24 tab 09/27/17 [Rx] Mupirocin 2% Oint [Bactroban 2% Oint] 1 applic TOPICAL TID #15 gm 09/27/17 [Rx] metFORMIN HCL [Glucophage] 500 mg PO HS #60 tab 09/27/17 [Rx] Follow up Appointment(s)/Referral(s): Danilo Moise MD [STAFF PHYSICIAN] - As Needed () Wilfredo Lawler DO [Primary Care Provider] - 1-2 days (Office will call you with appointment time) Patient Instructions/Handouts: Cellulitis (DC), Type 2 Diabetes in Adults (DC) Activity/Diet/Wound Care/Special Instructions: activity as tolerated continue diabetic diet Discharge Disposition: HOME SELF-CARE
[2017-09-27 15:55] VITALS: BP 141/83; PULSE 64; TEMP 96.4
--- NOTE | 2017-09-27 17:40 | MR ---
EXAMINATION TYPE: MR hand LT wo/w con DATE OF EXAM: 09/27/2017 COMPARISON: NONE HISTORY: Dog Bite, Gadavist 10ml, Since being in Hospital Pt states Swelling Has gone down and has Im proved CONTRAST: Standard multiplanar, multisequence MRI departmental protocol utilizing 10 mL intravenous Gadavist ga dolinium contrast. FINDINGS: Metacarpals are intact. Carpal bones are intact. Distal radius and ulna appear intact. I se e no fracture nor dislocation. The fingers are not included on this exam. There is mild subcutaneous increased signal around the thumb consistent with cellulitis. The flexor and extensor tendons of the wrist appear intact. There is no evidence of an abscess. IMPRESSION: There is evidence for minimal edema or cellulitis at the base of the thumb. Otherwise negative exam. No fracture. Joint spaces are fairly normal.
[2017-09-27 17:41] LABS: Glucose,Whole Blood 144 mg/dL (75-99)
--- NOTE | 2017-09-27 20:19 | P.PN ---
Subjective Progress Note Date: 09/27/17 Principal diagnosis: Dog bite left hand Very pleasant 67-year-old male who relates that he was in his home setting and was trying to assist his small pet dog onto the sofa. It reacted by turning around and biting him onto his left hand. The animal had a tight lead mobile developer and did not immediately go when he attempted to pull his hand away. With some gentle coaxing the dog finally released and he had a severe injury to the hand. He quit with soap and water over the next 24 hours seemed to be doing relatively well. However by the next day and had significant amounts of swelling and pain. He presented to the local walk-in clinic and was directed to the emergency center because of the extent of the swelling and infection that was present. He was provided update to his tetanus vaccine at the walk-in clinic and referred to the emergency center. With evidence of the animal bite in the extensive cellulitis the patient was admitted and started on intravenous antibiotic therapy. The patient believes he showing some improvement. He is denying high-grade fevers chills or rigors or sweats. The hand is still somewhat painful. He still has swelling and erythema. There is no significant purulence at the injury sites. He did have significant swelling to his hand where it was very difficult to try to make a fist. Is having improving hand function today. 09/26/2017 reveals this very pleasant gentleman to have further improvement over the last day. Swelling is down. Pain is improved. Function is improved. No evidence of any significant ascending infection. [place] feeling somewhat better. Not having significant fever. 09/27/2017 patient is improved awaits MRI but has improved pain and swelling with improved motion of the hand Objective - Vital Signs Vital signs: Vital Signs Temp 96.4 F L 09/27/17 15:00 Pulse 64 09/27/17 15:00 Resp 16 09/27/17 15:00 BP 141/83 09/27/17 15:00 Pulse Ox 94 L 09/27/17 15:00 Intake & Output 09/27/17 09/27/17 09/28/17 06:59 18:59 06:59 Intake Total 480 Balance 480 Intake: Oral 480 Other: # Voids 1 2 - Exam 67 year old male not in distress HEENT: Anicteric conjunctiva are pink and moist nasal mucosa grossly intact without significant lesions, there is no thrush. Neck: The neck is supple without significant lymphadenopathy or thyromegaly. Lungs: Good bilateral air entry without significant crackles or wheezing. There is no significant bronchial sounds. There is no egophony or dullness. Heart: Regular rate and rhythm with an audible S1-S2, no S3 no S4. There is no significant murmur click or rub, PMI was nondisplaced. Abdomen: Positive bowel sounds soft and nontender without palpable masses or organomegaly. There was no guarding or rebound. Extremities: The right upper extremity is intact. Left upper extremity shows evidence of the animal bite on the interspace between the thumb and index finger and one small injury at the base of the third proximal phalanx medial side neither area with expressible purulence but there is tenderness and erythema the ascending erythema to the hand appears to be improving in the last days time. There IS still some swelling to the hand. He does have the ability to make almost a complete fist. 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 The lower extremities have no lesions. There is no significant lower extremity edema. Neuro: Awake alert oriented to person place and time. There are no acute new gross focal sensory motor deficits. - Labs CBC & Chem 7: 09/27/17 08:54 09/27/17 08:54 Labs: Abnormal Lab Results - Last 24 Hours (Table) 09/26/17 09/27/17 09/27/17 Range/Units 20:50 07:29 08:54 Carbon Dioxide 21 L (22-30) mmol/L Glucose 247 H (74-99) mg/dL POC Glucose (mg/dL) 231 H 162 H (75-99) mg/dL Total Protein 6.2 L (6.3-8.2) g/dL 09/27/17 09/27/17 Range/Units 11:44 17:37 Carbon Dioxide (22-30) mmol/L Glucose (74-99) mg/dL POC Glucose (mg/dL) 202 H 144 H (75-99) mg/dL Total Protein (6.3-8.2) g/dL Microbiology - Last 24 Hours (Table) 09/24/17 20:47 Blood Culture - Preliminary Blood No Growth after 48 hours Laboratory Results WBC 7.8 k/uL (3.8-10.6) 09/27/17 08:54 RBC 4.68 m/uL (4.30-5.90) 09/27/17 08:54 Hgb 13.9 gm/dL (13.0-17.5) 09/27/17 08:54 Hct 41.3 % (39.0-53.0) 09/27/17 08:54 MCV 88.3 fL (80.0-100.0) 09/27/17 08:54 MCH 29.8 pg (25.0-35.0) 09/27/17 08:54 MCHC 33.8 g/dL (31.0-37.0) 09/27/17 08:54 RDW 13.0 % (11.5-15.5) 09/27/17 08:54 Plt Count 208 k/uL (150-450) 09/27/17 08:54 Neutrophils % 60 % 09/27/17 08:54 Lymphocytes % 27 % 09/27/17 08:54 Monocytes % 5 % 09/27/17 08:54 Eosinophils % 4 % 09/27/17 08:54 Basophils % 1 % 09/27/17 08:54 Neutrophils # 4.7 k/uL (1.3-7.7) 09/27/17 08:54 Lymphocytes # 2.1 k/uL (1.0-4.8) 09/27/17 08:54 Monocytes # 0.4 k/uL (0-1.0) 09/27/17 08:54 Eosinophils # 0.3 k/uL (0-0.7) 09/27/17 08:54 Basophils # 0.1 k/uL (0-0.2) 09/27/17 08:54 ESR 13 mm/hr (0-15) 09/26/17 09:04 Sodium 138 mmol/L (137-145) 09/27/17 08:54 Potassium 4.6 mmol/L (3.5-5.1) 09/27/17 08:54 Chloride 105 mmol/L (98-107) 09/27/17 08:54 Carbon Dioxide 21 mmol/L (22-30) L 09/27/17 08:54 Anion Gap 12 mmol/L 09/27/17 08:54 BUN 18 mg/dL (9-20) 09/27/17 08:54 Creatinine 0.92 mg/dL (0.66-1.25) 09/27/17 08:54 Est GFR (CKD-EPI)AfAm >90 (>60 ml/min/1.73 sqM) 09/27/17 08:54 Est GFR (CKD-EPI)NonAf 85 (>60 ml/min/1.73 sqM) 09/27/17 08:54 Glucose 247 mg/dL (74-99) H 09/27/17 08:54 POC Glucose (mg/dL) 144 mg/dL (75-99) H 09/27/17 17:37 POC Glu Panel Assembler ID Tere Pham 09/27/17 17:[address] Glu mg/dL 180 09/25/17 08:25 Hemoglobin A1c 7.9 % (4.0-6.0) H 09/25/17 08:25 Calcium 9.5 mg/dL (8.4-10.2) 09/27/17 08:54 Total Bilirubin 0.9 mg/dL (0.2-1.3) 09/27/17 08:54 AST 26 U/L (17-59) 09/27/17 08:54 ALT 40 U/L (21-72) 09/27/17 08:54 Alkaline Phosphatase 41 U/L (38-126) 09/27/17 08:54 C-Reactive Protein 61.1 mg/L (<10.0) H 09/26/17 09:04 Total Protein 6.2 g/dL (6.3-8.2) L 09/27/17 08:54 Albumin 3.7 g/dL (3.5-5.0) 09/27/17 08:54 Microbiology 09/24/17 20:47 Blood Blood Culture - Preliminary No Growth after 48 hours MRI of hand negative for osteomyelitis or tenosynovitis Assessment and Plan (1) Dog bite Narrative/Plan: 67-year-old male relates that he suffered a dog bite to his left hand from his family. The animal has all of its vaccines. This is the first time event like this is occurred. However was provoked. Overall the patient is having some improvement. He is having some improvement to the range of motion and decreased erythema and tenderness and swelling. The patient is showing a good response to current antibiotic therapy. Further imaging studies are in process. However given his significant improvement seems to be less likely to have deep infection clinically does not seem to have tenosynovitis, x-ray did not reveal evidence of fracture or foreign body effect. The patient had his tetanus vaccine updated and is feeling somewhat well this point in time. Will offer some consistent anti-inflammatory to reduce the swelling and help with pain and hopefully will be able to have a rapid improvement and then transition to oral antibiotic therapy in the near future. 09/26/2017 reveals the patient to be further improved. Pain and swelling of improved. Good response to the Toradol infusion. He is denying any new troubles. He will have his MRI in the morning. If there is no evidence of tenosynovitis he may then be transitioned to oral antibiotic therapy and discharged home. 09/27/2017 fist evaluation patient is improved denies new problems hand is markedly improved await the MRI. MRI available now and no evidence of deep infection so can discharge home on Augmentin and follow up if needed Status: Acute Code(s): W54.0XXA - BITTEN BY DOG, INITIAL ENCOUNTER SNOMED Code(s): 358390403 (2) Cellulitis of left hand Status: Acute Code(s): L03.114 - CELLULITIS OF LEFT UPPER LIMB SNOMED Code(s ): 13142711
== END 2017-09-27 18:26 | disposition home or self-care (01) | DRG 603 ==
LOC: EC 20:07 → OBSVTOIN 20:55 → 4MS4W 20:55
PROVIDERS: ADMIT Family Medicine; ATTEND Family Medicine
DX: L03.114 Cellulitis of left upper limb (principal); R65.10 Systemic inflammatory response syndrome (SIRS) of non-infectious origin without acute organ dysfunction; E11.9 Type 2 diabetes mellitus without complications; F32.9 Major depressive disorder, single episode, unspecified; F43.10 Post-traumatic stress disorder, unspecified; F51.04 Psychophysiologic insomnia; G47.33 Obstructive sleep apnea (adult) (pediatric); K21.9 Gastro-esophageal reflux disease without esophagitis; S61.452A Open bite of left hand, initial encounter; M19.90 Unspecified osteoarthritis, unspecified site; Z79.84 Long term (current) use of oral hypoglycemic drugs; Z79.899 Other long term (current) drug therapy; Z96.651 Presence of right artificial knee joint; Z87.891 Personal history of nicotine dependence; Z90.49 Acquired absence of other specified parts of digestive tract; Z82.49 Family history of ischemic heart disease and other diseases of the circulatory system; W54.0XXA Bitten by dog, initial encounter
CPT/HCPCS: 36415; 80048; 80053; 83036; 85025; 85652; 86140; 87040; 99284

== ENCOUNTER 2020-01-04 09:56 | Day surgery (SDC) | payer MEDICARE, OTHER ==
[2020-01-03 11:15] VITALS: BMI 30.5
[~2020-01-04 09:56] MED LIST: LACTATED RINGERS 1,000 ML IV SCH; LIDOCAINE 1% (10MG/ML) FOR IV START INTRADERMA PRN
[2020-01-04] MEDS ORDERED: LACTATED RINGERS 1,000 ML IV ONE (10:35)
[2020-01-04 10:39] VITALS: TEMP 96.9
[2020-01-04 10:52] LABS: Glucose,Whole Blood 159 mg/dL (75-99)
[2020-01-04] MEDS ORDERED: LIDOCAINE 1% INJ 10MG/ML (20 ML MDV) ONE (11:45)
[2020-01-04] MEDS ORDERED: PROPOFOL 10 MG/ML 20 ML VIAL IV ONE (11:45)
--- NOTE | 2020-01-04 12:03 | P.PCN ---
Date of Procedure: 01/04/20 Procedure(s) Performed: BRIEF HISTORY: Patient is a 69-year-old pleasant white male scheduled for an elective colonoscopy as a part of evaluation of prior history of colon polyps. Last colonoscopy was 7 years ago. PROCEDURE PERFORMED: Colonoscopy. PREOPERATIVE DIAGNOSIS: History of colon polyps. IV sedation per Anesthesia. PROCEDURE: After informed consent was obtained, the patient, was brought into the endoscopy unit. IV sedation was administered by Anesthesia under continuous monitoring. Digital rectal examination was normal. Initially the Olympus CF-160 flexible video colonoscope was then inserted in the rectum, gradually advanced into the cecum without any difficulty. Careful examination was performed as the scope was gradually being withdrawn. Ileocecal valve and the appendiceal orifice were visualized and appeared normal. Prep was fair.. Mucosa of the cecum, ascending colon, transverse colon, descending colon, sigmoid colon, and rectum appeared normal scattered sigmoid diverticulosis seen.. Retroflexion was performed in the rectum and no lesions were seen. The patient tolerated the procedure well. IMPRESSION: Normal-appearing colon from rectum to cecum with no evidence of colorectal neoplasia. Scattered sigmoid diverticulosis RECOMMENDATIONS: Findings of this examination were discussed with the patient as well as his family. He was advised to have a repeat screening colonoscopy in 10 years.
[2020-01-04 12:24] VITALS: BP 117/75; PULSE 55; RESP 17
== END 2020-01-04 12:53 | disposition home or self-care (01) ==
LOC: ORWHC2ENDO 09:56
PROVIDERS: ATTEND Internal Medicine Gastroenterology
DX: Z12.11 Encounter for screening for malignant neoplasm of colon (principal); K57.30 Diverticulosis of large intestine without perforation or abscess without bleeding; E11.9 Type 2 diabetes mellitus without complications; M19.90 Unspecified osteoarthritis, unspecified site; K21.9 Gastro-esophageal reflux disease without esophagitis; Z86.010 Personal history of colon polyps; Z79.84 Long term (current) use of oral hypoglycemic drugs; Z79.899 Other long term (current) drug therapy; Z97.2 Presence of dental prosthetic device (complete) (partial)
CPT/HCPCS: J2001; J2704; G0105; 45378

== ENCOUNTER → 2024-03-31 | Outpatient (CLI) | payer MEDICARE ==
--- NOTE | 2024-03-31 12:35 | NM ---
EXAMINATION TYPE: NM bone scan whole body DATE OF EXAM: 03/31/2024 COMPARISON: NONE CLINICAL INDICATION: Male, 73 years old with history of M19.90 OSTEOARTHRITIS; Delayed whole-body scanning was performed following the injection of 24.3 mCi Tc 99m MDP. Images acq uired 3.5 hours post injection. FINDINGS: Degenerative changes are noted throughout the thoracolumbar spine. There is also degenerative uptake about the shoulders, sternoclavicular joints, bilateral hips, right knee and bilateral ankles and fee t. Total knee arthroplasty changes left knee. No intense uptake to suggest bony metastatic disease or acute fracture. IMPRESSION: Degenerative uptake as noted.
== END | disposition home or self-care (01) ==
LOC: RADNMMAIN 07:18
PROVIDERS: ATTEND Family Medicine
DX: M47.815 Spondylosis without myelopathy or radiculopathy, thoracolumbar region (principal)
CPT/HCPCS: 78306

== ENCOUNTER → 2025-02-12 | Outpatient (CLI) | payer MEDICARE ==
--- NOTE | 2025-02-12 10:50 | US ---
EXAMINATION TYPE: US carotid duplex BILAT DATE OF EXAM: 02/12/2025 COMPARISON: NONE CLINICAL INDICATION: Male, 74 years old with history of I65.23 CAROTID STENOSIS STEVEN, I25.10; Dizzy sp ells with some numbness in bilateral arms. HX DM and former smoker x 20 years. Additional History: .... TECHNIQUE: Grayscale, color Doppler and spectral Doppler evaluation of the bilateral carotid systems and vertebral arteries. Indirect Doppler criteria was utilized. FINDINGS: EXAM MEASUREMENTS: RIGHT: Peak Systolic Velocity (PSV) cm/sec ----- Right CCA: 89 ----- Right ICA: 83 ----- Right ECA: 116 ICA/CCA ratio: 0.9 RIGHT: End Diastole cm/sec ----- Right CCA: 19 ----- Right ICA: 24 ----- Right ECA: 9 LEFT: Peak Systolic Velocity (PSV) cm/sec ----- Left CCA: 94 ----- Left ICA: 83 ----- Left ECA: 121 ICA/CCA ratio: 0.9 LEFT: End Diastole cm/sec ----- Left CCA: 15 ----- Left ICA: 22 ----- Left ECA: 15 VERTEBRALS (direction of flow): Right Vertebral: Antegrade Left Vertebral: Antegrade Rhythm: Normal PROSTHETIC TECHNICIAN NOTES: No intimal thickening, plaque, or elevated velocities seen. Color Doppler imaging shows patency with blood flow throughout the carotid artery. Spectral waveforms are within normal limits. IMPRESSION: No evidence for hemodynamically significant stenosis. Criteria for Assigning % of Stenosis / Diameter reduction (Estimation based on the indirect measurements of the internal carotid artery velocities (ICA PSV). 1. Normal (no stenosis)=ICA PSV < 180 cm/s: ratio < 2.0: ICA EDV<40 cm/s. 2. Less than 50% stenosis=ICA PSV < 180 cm/s: ratio < 2.0: ICA EDV<40 cm/s. 3. 50 to 69% stenosis=ICA PSV of 180 to 230 cm/s: ration 2.0 ? 4.0: ICA EDV 40-100 cm/s. PSV 125-180 cm/sec and ICA/CCA PSV Ratio ? 2.0 is also consistent with 50-69% stenosis 4. Greater than 70% stenosis to near occlusion= ICA PSV > 230 cm/s: ratio > 4.0: ICA EDV > 100 cm/s. 5. Near occlusion= ICA PSV velocities may be low or undetectable: variable ratio and ICA EDV. 6. Total occlusion=unable to detect flow. [facility], , 02/12/2025 10:48 AM
== END | disposition home or self-care (01) ==
LOC: RADUSWWP 09:40
PROVIDERS: ATTEND Internal Medicine
DX: I65.23 Occlusion and stenosis of bilateral carotid arteries (principal); E11.9 Type 2 diabetes mellitus without complications; I25.10 Atherosclerotic heart disease of native coronary artery without angina pectoris; Z87.891 Personal history of nicotine dependence
CPT/HCPCS: 93880